=== PATIENT | female | born 1940 | race Caucasian/White ===

== ENCOUNTER 2023-06-25 08:40 | Inpatient (IN) | payer MEDICARE, BC ==
[2023-06-25] MEDS ORDERED: methylPREDNISolone Sod Succ/PF 125 MG/2 ML VIAL ONE (09:06)
[2023-06-25] MEDS ORDERED: Ipratropium/Albuterol 3 ML NEB ONE ×3 (09:07→18:59)
[2023-06-25 09:32] LABS: #Monocytes 0.4 10x3/uL (0.0-1.1); #Neutrophils 6.9 10x3/uL (1.5-8.4); %Basophils 0.2 % (0.0-2.0); %Eosinophils 0.1 % (0.0-6.0); %Lymphocytes 16.5 % (18.0-47.0); %Monocytes 4.1 % (0.0-10.0); %Neutrophils 78.6 % (40.0-75.0); Hematocrit 33.9 % (34.9-44.5); Hemoglobin 11.1 g/dL (12.0-15.5); Mean Corpuscular HGB CONC 32.7 g/dL (32.0-36.0); Mean Corpuscular Hemoglobin 32.9 pg (27.0-33.0); Mean Corpuscular Volume 100.6 fl (81.6-98.3); Mean Platelet Volume 9.4 fl (7.4-10.4); Platelet Count 196 10x3/uL (150-450); Red Blood Cell (RBC) Count 3.37 10x6/uL (3.90-5.03); White Blood Cell (WBC) Count 8.8 10x3/uL (3.5-10.5)
[2023-06-25 09:39] LABS: ALT (SGPT) 19 U/L (8-55); AST (SGOT) 40 U/L (5-34); Albumin 4.6 g/dL (3.4-4.8); Alkaline Phosphatase 57 U/L (40-110); Anion Gap 18 mmol/L (10-20); BUN (Urea Nitrogen) 21 mg/dL (9.8-20.1); Bilirubin, Total 0.4 mg/dL (0.2-1.2); Calc. Creatinine Clearance 0 mL/min (70-130); Calcium 9.8 mg/dL (7.8-10.44); Carbon Dioxide 24 mmol/L (23-31); Chloride 98 mmol/L (98-107); Estimated GFR 37; Globulin 3.1 g/dL (2.4-3.5); Glucose 167 mg/dL (83-110); Potassium 3.8 mmol/L (3.5-5.1); Protein, Total 7.7 g/dL (5.8-8.1); Sodium 136 mmol/L (136-145)
[2023-06-25 10:09] LABS: Influenza A by NAA DETECTED (NotDetected); SARS-CoV-2 NAA Rapid Test Not Detected (NotDetected)
[2023-06-25] MEDS ORDERED: Ipratropium/Albuterol 3 ML NEB NEB PRN (11:17)
[2023-06-25] MEDS ORDERED: Senokot S 8.6-50 MG TAB PO PRN (11:17)
[2023-06-25 13:57] VITALS: BMI 20.9
[2023-06-25] MEDS: Ipratropium/Albuterol 3 ML NEB NEB SCH (14:05)
[2023-06-25] MEDS ORDERED: Pantoprazole 40 MG VIAL ONE (15:23)
[2023-06-25] MEDS: Sodium Chloride 0.9% 1,000 ML IV SCH (15:45)
[2023-06-25] MEDS: Oseltamivir 6 MG/ML ORAL SUSP PO SCH (15:45)
[2023-06-25] MEDS: ALPRAZolam 0.25 MG TAB PO SCH (21:24)
[2023-06-26] MEDS: Benzocaine/Menthol 1 LOZ LOZ PO PRN (00:48)
[2023-06-26] MEDS: traZODone HCl 50 MG TAB PO SCH (00:48)
[2023-06-26 03:50] LABS: Anion Gap 18 mmol/L (10-20); BUN (Urea Nitrogen) 17 mg/dL (9.8-20.1); Calc. Creatinine Clearance 40 mL/min (70-130); Calcium 9.6 mg/dL (7.8-10.44); Carbon Dioxide 25 mmol/L (23-31); Chloride 99 mmol/L (98-107); Estimated GFR 67; Glucose 195 mg/dL (83-110); Potassium 4.1 mmol/L (3.5-5.1); Sodium 138 mmol/L (136-145)
[2023-06-26 03:53] LABS: Hematocrit 32.9 % (34.9-44.5); Mean Corpuscular HGB CONC 33.4 g/dL (32.0-36.0); Mean Corpuscular Hemoglobin 32.9 pg (27.0-33.0); Mean Corpuscular Volume 98.5 fl (81.6-98.3); Mean Platelet Volume 9.9 fl (7.4-10.4); Platelet Count 188 10x3/uL (150-450); RBC Distribution Width 13.9 % (11.5-14.5); Red Blood Cell (RBC) Count 3.34 10x6/uL (3.90-5.03); White Blood Cell (WBC) Count 7.2 10x3/uL (3.5-10.5)
[2023-06-26 03:55] LABS: MDiff Complete? YES
[2023-06-26 04:35] LABS: Band 23 % (5-11); Lymphocytes 3 % (21-51); Monocytes 4 % (0-10); Neutrophil 70 % (42-75)
[2023-06-26 04:37] LABS: Hypochromia SLIGHT = 6-15 cells (100X) (0-5/hpf); Platelet Adequacy Comment Appears Adequate; Stomatocytes SLIGHT = 2-5 cells (100X) (0-1/hpf)
[2023-06-26] MEDS: predniSONE 20 MG TAB PO SCH (08:23)
[2023-06-26] MEDS: Guaifenesin DM 100-10/5 ML UDCUP PO PRN (08:32)
[2023-06-26] MEDS: Sodium Chloride 0.9% 500 ML IV SCH (14:20)
[2023-06-26] MEDS: Acetaminophen 325 MG TAB PO PRN (21:23)
[2023-06-27] MEDS: Lorazepam 0.5 MG TAB PO PRN (21:26)
[2023-06-29 12:25] VITALS: BP 133/76; TEMP 98.4
== END 2023-06-29 14:30 | disposition home or self-care (01) | DRG 193 ==
LOC: CSHERS 08:40 → CSHERHOLD 11:03 → CSHTELE 20:11 → OBSVTOIN 06-26 11:39
PROVIDERS: ADMIT Internal Medicine; ATTEND Internal Medicine
DX: J10.1 Influenza due to other identified influenza virus with other respiratory manifestations (principal); J96.21 Acute and chronic respiratory failure with hypoxia; J44.1 Chronic obstructive pulmonary disease with (acute) exacerbation; I10 Essential (primary) hypertension; E78.5 Hyperlipidemia, unspecified; F17.210 Nicotine dependence, cigarettes, uncomplicated; F10.90 Alcohol use, unspecified, uncomplicated; Z90.710 Acquired absence of both cervix and uterus; Z90.89 Acquired absence of other organs; Z88.0 Allergy status to penicillin; Z11.52 Encounter for screening for COVID-19; R73.03 Prediabetes
CPT/HCPCS: 36415; 71045; 80048; 80053; 80307; 82607; 85025; 94640; 94760; 96374; C9113; G0378; J2930; J7030; J7050; J7512; J7620

== ENCOUNTER 2024-05-29 17:39 | Emergency (ER) | payer MEDICARE, BC | END 2024-05-29 19:30 | disposition home or self-care (01) | LOC: CSHERS 17:39 | DX: K64.4 Residual hemorrhoidal skin tags (principal); K59.00 Constipation, unspecified; I10 Essential (primary) hypertension; J44.9 Chronic obstructive pulmonary disease, unspecified; E78.5 Hyperlipidemia, unspecified; F17.210 Nicotine dependence, cigarettes, uncomplicated | CPT/HCPCS: 99283 ==